=== PATIENT | female | born 1950 | race Caucasian/White ===

== ENCOUNTER 2018-10-07 11:29 | Emergency (ER) | payer MEDICARE, OTHER ==
[2018-10-07] MEDS ORDERED: IPRATROPIUM/ALBUTEROL SULFATE 3 ML AMPUL.NEB NEB ONE (11:43)
--- NOTE | 2018-10-07 11:46 | ED Physician Documentation ---
Dyspnea - HISTORIAN Historian: patient - HPI Stated Complaint: shortness of breath, cough Chief Complaint: Wheezing Additional Information: Patient presents to ED with a 10 day history of cough with sputum production, shortness of breath and wheezing. Patient has COPD and uses albuterol nebulizer treatments at home. Since she has been sick she has been using Albuterol every 4 hours. She was started on medrol dose pack and Cefdiner 2 days ago. Initially, she state she felt better but today her symptoms have worsened. Onset: days ago (10) Duration: continues in ED Initiating Event: upper respiratory illness Severity: mild Exacerbated By: coughing Associated Symptoms: denies: chills, fever, chest pain - ROS CONST: no problems EYES/ENT: nasal drainage, nasal congestion GI/: denies: vomiting, nausea NEURO/PSYCH: denies: headache MS/SKIN/LYMPH: denies: swollen glands - PAST HX Lung Disease: COPD Cardiac Disease: none PE Risk Factors: none Surgeries/Procedures: none Other History: none Allergies/Adverse Reactions: Allergies Allergy/AdvReac Type Severity Reaction Status Date / Time erythromycin base Allergy Verified 10/07/18 11:55 levofloxacin [From Levaquin] Allergy Verified 10/07/18 11:55 Sulfa (Sulfonamide Allergy Verified 10/07/18 11:55 Antibiotics) mycins Allergy Unknown Uncoded 10/07/18 11:55 'mycins' Allergy Uncoded 10/07/18 11:55 DAIRY FOODS AdvReac Diarrhea Uncoded 10/07/18 11:55 Home Medications: Ambulatory Orders Medication Instructions Recorded Albuterol Sulfate [Ventolin HFN] 1 vial INH Q4 PRN #0 08/25/16 Prednisone 10 mg PO DIRECTED #36 tablet 08/25/16 Cefdinir 300 mg PO BID 10/07/18 Ipratropium Emerson 0.2 mg IH TID #90 ml 10/07/18 predniSONE [Deltasone] 20 mg PO DIRECTED #20 tablet 10/07/18 - SOCIAL HX Smoking History: cigarettes, greater than 1 pack/day Alcohol Use: none Drug Use: none - FAMILY HX Family History: none - VITAL SIGNS Vital Signs: Vital Signs Temp Pulse Resp BP Pulse Ox 124/56 08/25/16 09:18 - REVIEWED ASSESSMENTS Nursing Assessment Reviewed: Yes Vitals Reviewed: Yes Progress - Progress Progress: 1205 Improved aeration bilaterally, still expiratory wheezing on left. Patient states she feels better. ED Results Lab/Radiology - Radiology Radiology Impressions: PA AND LATERAL CHEST HISTORY: COPD. Congestion. COMPARISON: None PA and Lateral Chest dated October 07, 2018 demonstrates a normal cardiomediastinal silhouette. Pulmonary vascularity is normal. Lungs are clear. IMPRESSION: NO ACTIVE DISEASE. Electronically signed on Oct 07, 2018 12:37:18 PM TRANSFORMER REPAIRER by: Gisella Lew - Orders Orders: ED Orders Category Date Time Status CHEST 2VIEW [RAD] Stat Exams 10/07/18 Ordered Ipratropium/Albuterol Sulfate [Duoneb] Med 10/07/18 11:43 Once 3 ml NEB NOW ONE Dyspnea Physical Exam - EXAM General Appearance: no acute distress, alert EENT: XOCHILT Respiratory: no resp. distress, wheezes (diffuse inspiratory/expiratory wheezing bilaterally) CVS: reg. rate & rhythm Abdomen: non-tender, no distention Extremities: non-tender, no edema Neuro/Psych: oriented x3, motor nml Discharge Clincal Impression: COPD with acute exacerbation Clincal Impression: (Ruled Out): COPD exacerbation Prescriptions: Ipratropium Emerson 0.2 mg IH TID #90 ml predniSONE [Deltasone] 20 mg PO DIRECTED #20 tablet Referrals: Emilee Magallon MD [Primary Care Provider] - 2 Days Additional Instructions: 1. Tylenol and/or Ibuprofen as needed for fever or pain. You may take these medications together at the same time for better pain control. 2. Add a daily antihistamine such as Claritin, Zyrtec, Xyxal, Allergra. Avoid taking the D version of these medications as they contain sudafed and will increase your blood pressure 3. Take Mucinex or Robutussin (both contain the same ingredient) to help with mucus thinning allowing you to clear your mucus easier. While taking these medications you must drink at least 64 ounces of water daily. 4. Use a cool mist humidifier with sleep 5. Follow up with PCP within 3 days 6. Continue to take Cefdinir. Stop taking previous steroid prescription and start new steroid prescription tomorrow 10/08/2018 7. Return to the ED with fever >102.0, difficulty breathing, chest pain or any new or worsening symptoms. Condition: Stable Disposition: 01 HOME, SELF-CARE Decision to Admit: NO Date of Decison to Admit: 10/07/18 Decision Time: 12:50
[2018-10-07] MEDS ORDERED: methylPREDNISolone SOD SUCC 125 MG/2 ML VIAL IM ONE (11:48)
[2018-10-07 13:13] VITALS: BP 154/68
--- NOTE | 2018-10-07 15:33 | Diagnostic Imaging Report ---
ANAY BELL [facility] [address] [facility] [address] [place], [place]. [address] Report Submission Date: Oct 07, 2018 12:37:18 PM LEARNING SUPPORT RESOURCE ROOM TEACHER Patient Study Name: FRANCIS CARTAGENA Date: Oct 07, 2018 12:00:38 PM LEARNING SUPPORT RESOURCE ROOM TEACHER Modality Type: DX Gender: F Description: CHEST : 46 Institution: [facility] Physician: ANAY BELL PA AND LATERAL CHEST HISTORY: COPD. Congestion. COMPARISON: None PA and Lateral Chest dated October 07, 2018 demonstrates a normal cardiomediastinal silhouette. Pulmonary vascularity is normal. Lungs are clear. IMPRESSION: NO ACTIVE DISEASE. Electronically signed on Oct 07, 2018 12:37:18 PM LEARNING SUPPORT RESOURCE ROOM TEACHER by: Gisella JACKSON
== END 2018-10-07 13:08 | disposition home or self-care (01) ==
LOC: ED 11:29
DX: J44.1 Chronic obstructive pulmonary disease with (acute) exacerbation (principal); Z72.0 Tobacco use
CPT/HCPCS: 71046; 94640; 96372; 99283; 99284; J2930

== ENCOUNTER 2019-03-26 12:22 | Emergency (ER) | payer MEDICARE, OTHER ==
[2019-03-26 12:38] VITALS: BP 149/79
--- NOTE | 2019-03-26 13:03 | ED Physician Documentation ---
General Adult - HISTORIAN Historian: patient - HPI Stated Complaint: left wrist injury Chief Complaint: General Adult Onset: minutes Timing: still present Severity: moderate Further Comments: yes (Pt is a 69 yo female with injury to her L wrist. Pt was trying to start a motorized tiller when she snapped her wrist. Pain with movement. No swelling.) - ROS CONST: no problems EYES/ENT: none CVS/RESP: none GI/: none MS/SKIN/LYMPH: other (L wrist pain) - PAST HX Past History: AMI, COPD Allergies/Adverse Reactions: Allergies Allergy/AdvReac Type Severity Reaction Status Date / Time erythromycin base Allergy Verified 03/26/19 12:35 levofloxacin [From Levaquin] Allergy Verified 03/26/19 12:35 Sulfa (Sulfonamide Allergy Verified 03/26/19 12:35 Antibiotics) mycins Allergy Unknown Uncoded 03/26/19 12:35 'mycins' Allergy Uncoded 03/26/19 12:35 DAIRY FOODS AdvReac Diarrhea Uncoded 03/26/19 12:35 Home Medications: Ambulatory Orders Medication Instructions Recorded NK 03/26/19 - SOCIAL HX Smoking History: cigarettes - FAMILY HX Family History: No - VITAL SIGNS Vital Signs: Vital Signs Temp Pulse Resp BP Pulse Ox 96.7 F L 101 H 19 149/79 95 03/26/19 12:31 03/26/19 12:31 03/26/19 12:31 03/26/19 12:31 03/26/19 12:31 - REVIEWED ASSESSMENTS Nursing Assessment Reviewed: Yes Vitals Reviewed: Yes Progress - Progress Progress: Findings: A nondisplaced transverse distal left radial metaphysis fracture is present without angulation. 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 Impression: Distal radius fracture. Sugar tong splint Sling Rx [place] (5/325). Take one or two every 4 to 6 hours as needed for moderate to severe pain. ED Results Lab/Radiology - Orders Orders: ED Orders Category Date Time Status WRIST 3 VIEWS OR MORE [RAD] Stat Exams 03/26/19 Taken General Adult Physical Exam - PHYSICAL EXAM GENERAL APPEARANCE: mild distress NECK: normal inspection, supple RESPIRATORY: no resp distress, chest non-tender, breath sounds normal CVS: reg rate & rhythm, heart sounds normal BACK: normal inspection, no CVA tenderness SKIN: warm/dry, normal color EXTREMITIES: other (L wrist tenderness; no tenderness in anatomical snuff box; FROM; no swelling.) NEURO: oriented X3, motor nml, sensation nml Discharge Clincal Impression: L wrist fracture Referrals: Emilee Magallon MD [Primary Care Provider] - Condition: Stable Disposition: 01 HOME, SELF-CARE Decision to Admit: NO Decision Time: 13:36
--- NOTE | 2019-03-26 16:03 | Diagnostic Imaging Report ---
XIOMARA COY [facility] [address] [facility] [address] [address] Report Submission Date: Mar 26, 2019 1:18:39 PM CDT Patient Study Name: FRANCIS CARTAGENA Date: Mar 26, 2019 12:35:35 PM CDT Modality Type: DX Gender: F Description: WRIST 3 VIEWS : 46 Institution: [facility] Physician: XIOMARA COY Right wrist three views History: Pain and swelling after injury Findings: A nondisplaced transverse distal left radial metaphysis fracture is present without angulation. 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 Impression: Distal radius fracture. Electronically signed on Mar 26, 2019 1:18:39 PM CDT by: Roman JACKSON
== END 2019-03-26 13:48 | disposition home or self-care (01) ==
LOC: ED 12:22
DX: S62.92XA Unspecified fracture of left hand, initial encounter for closed fracture (principal); W29.3XXA Contact with powered garden and outdoor hand tools and machinery, initial encounter
CPT/HCPCS: 73110